=== PATIENT | male | born 1950 | race Caucasian/White ===

== ENCOUNTER 2017-03-14 11:54 | Emergency (ER) | payer MEDICARE, OTHER ==
[~2017-03-14] VITALS: Ht 188 cm; Wt 84.0 kg
[~2017-03-14 11:54] MED LIST: AMPYRA PO; CARD4TAB2 PO; DIAZ5 PO; OMEP20CA5 PO; POTA-243 PO; PROP60TA2 PO; TYLE3 PO
[2017-03-14 12:03] VITALS: BP 139/80; PULSE 59; RESP 16; TEMP 97.9; O2SAT 97
--- NOTE | 2017-03-14 12:42 | PD ---
HPI . Bruised right middle finger Chief Complaint: Skin Problem Time Seen by Provider: 12:31 Travel History International Travel<30 days: No Contact w/Intl Traveler<30days: No Traveled to known affect area: No History of Present Illness HPI Patient presents with bruising of the right middle finger. He does not recall an injury. He reports no pain. He noticed it yesterday. In addition, he reports a sacral decubitus ulcer. That has been present for about a month. His has been treating it with duoderm. There has been no foul drainage. He has not been running a fever. This patient has a history of multiple sclerosis. PFSH Past Medical History Arthritis: No Asthma: No Autoimmune Disease: Yes (MS) Blood Disorders: No Anxiety: No Depression: No Heart Rhythm Problems: No Cancer: No Cardiovascular Problems: No Chemotherapy: No Chest Pain: No Congestive Heart Failure: No COPD: No Cerebrovascular Accident: No Diabetes: No Endocrine: No GERD: Yes Glaucoma: No Genitourinary: Yes (H/O UTI) Headaches: Yes Hepatitis: No Hypertension: No Immune Disorder: Yes Kidney Stones: Yes Musculoskeletal: Yes Neurologic: Yes Psychiatric: No Reproductive: No Respiratory: No Migraines: No Myocardial Infarction: No Radiation Therapy: No Renal Failure: No Seizures: No Sickle Cell Disease: No Thyroid Disease: No Ulcer: No Past Surgical History Abdominal Surgery: No AICD: No Appendectomy: No Arteriovenous Shunt: No Cardiac Surgery: No Cholecystectomy: No Endocrine Surgery: No Eye Surgery: No Genitourinary Surgery: No Gynecologic Surgery: No Insulin Pump: No Joint Replacement: No Oral Surgery: No Pacemaker: No Thoracic Surgery: Yes (Hernia repair) Social History Alcohol Use: No Tobacco Use: No Substance Use: No Allergies-Medications (Allergen,Severity, Reaction): Coded Allergies: Nut Tree (Verified Allergy, Unknown, 03/14/17) Reported Meds & Prescriptions Reported Meds & Active Scripts Active Reported K-Dur (Potassium Chloride) Unknown Strength Tabcr Unknown Dose PO BID Tylenol #3 (Acetaminophen/Codeine Phosphate) Acetaminophen 300/30 Codeine Tab 1 Tab PO Q12 FOR PAIN Valium (Diazepam) 5 Mg Tab 5 Mg PO HS Prilosec 20 mg (Omeprazole) 20 Mg Capcr 20 Mg PO BID Cardura 4 mg (Doxazosin Mesylate) 4 Mg Tab 4 Mg PO BID [ampyra] 10 Mg PO BID Inderal (Propranolol HCl) 60 Mg Tab 120 Mg PO DAILY Review of Systems Except as stated in HPI: all other systems reviewed are Neg General / Constitutional: No: Fever, Chills Skin: Positive Change in Pigmentation, Positive Other (sacral decubitus) Physical Exam Narrative GENERAL: Awake and alert and in no acute distress. SKIN: Warm and dry. He has bruising of the right middle finger. The skin temperature of all fingers is. He has brisk capillary refill. Stage II sacral decubitus. No drainage. HEAD: Atraumatic. Normocephalic. EYES: Pupils equal and round. NECK: Trachea midline. CARDIOVASCULAR: Regular rate and rhythm. RESPIRATORY: No accessory muscle use. MUSCULOSKELETAL: No obvious deformities. No edema. The finger is nontender. NEUROLOGICAL: Awake and alert. No obvious cranial nerve deficits. Diffuse motor weakness. Normal speech. PSYCHIATRIC: Appropriate mood and affect; insight and judgment normal. Data Data Last Documented VS Vital Signs Date Time Temp Pulse Resp B/P Pulse Ox O2 Delivery O2 Flow Rate FiO2 03/14/17 12:03 97.9 59 16 139/80 97 MDM Medical Decision Making Medical Screen Exam Complete: Yes Emergency Medical Condition: Yes Differential Diagnosis Differential diagnosis of extremity trauma includes but is not limited to fracture, sprain or strain, dislocation, contusion Narrative Course Patient presents with bruising of the right little finger. The finger is nontender. He recalls no injury. He has normal circulation. He also has a stage II decubitus ulcer. It is clean appearing. Diagnosis Primary Impression: Hematoma Additional Impression: Sacral decubitus ulcer Qualified Code: L89.152 - Decubitus ulcer of sacral region, stage 2 Disposition: 01 DISCHARGE HOME Condition: Stable Chrissie Mckeon MD Mar 14, 2017 12:42
[2017-03-14] MEDS ORDERED: REDCAP2 PO (12:51)
[2017-03-14] MEDS ORDERED: OMEP20TA PO (12:51)
[2017-03-14] MEDS ORDERED: FINA5TAB2 PO (12:51)
[2017-03-14] MEDS ORDERED: AMPY10TA PO (12:51)
[2017-03-14] MEDS ORDERED: VITA400C5 PO (12:51)
[2017-03-14] MEDS ORDERED: MOME17I EACH NARE (12:51)
[2017-03-14] MEDS ORDERED: DIAZ5TAB PO (12:51)
[2017-03-14] MEDS ORDERED: ASPI-110 PO (12:51)
[2017-03-14] MEDS ORDERED: VITA10007 PO (12:51)
[2017-03-14] MEDS ORDERED: POTA1080 PO (12:51)
[2017-03-14] MEDS ORDERED: RAPA8CAP PO (12:51)
[2017-03-14] MEDS ORDERED: VITACAP7 PO (12:51)
[2017-03-14] MEDS ORDERED: FISH500C PO (12:51)
[2017-03-14] MEDS ORDERED: PROP1CAP32 PO (12:51)
[2017-03-14] MEDS ORDERED: TURM500C3 PO (12:51)
== END 2017-03-14 13:40 | disposition home or self-care (01) ==
LOC: PHED 11:54
DX: S60.031A Contusion of right middle finger without damage to nail, initial encounter (principal); L89.152 Pressure ulcer of sacral region, stage 2; G35 Multiple sclerosis; Z87.19 Personal history of other diseases of the digestive system; Z87.448 Personal history of other diseases of urinary system; Z87.39 Personal history of other diseases of the musculoskeletal system and connective tissue; Z86.69 Personal history of other diseases of the nervous system and sense organs; X58.XXXA Exposure to other specified factors, initial encounter
CPT/HCPCS: 99283

== ENCOUNTER → 2017-05-28 | Outpatient (CLI) | payer MEDICARE, OTHER ==
[~2017-05-28] MED LIST changes: +AMPY10TA PO; -AMPYRA PO; +ASPI-110 PO; -CARD4TAB2 PO; -DIAZ5 PO; +DIAZ5TAB PO; +FINA5TAB2 PO; +FISH500C PO; +MOME17I EACH NARE; -OMEP20CA5 PO; +OMEP20TA PO; -POTA-243 PO; +POTA1080 PO; +PROP1CAP32 PO; -PROP60TA2 PO; +RAPA8CAP PO; +REDCAP2 PO; +TURM500C3 PO; -TYLE3 PO; +VITA10007 PO; +VITA400C5 PO; +VITACAP7 PO
[2017-05-28 13:31] LABS: ANION GAP 5 MEQ/L (5-15); AST (GOT) 16 U/L (15-37); BLOOD UREA NITROGEN 15 MG/DL (7-18); CHLORIDE 105 MEQ/L (98-107); GLOMERULAR FILTRATION RATE 65 ML/MIN (>89); GLUCOSE,FASTING 77 MG/DL (74-99); POTASSIUM 3.8 MEQ/L (3.5-5.1); SODIUM (NA) 141 MEQ/L (136-145)
[2017-05-28 13:39] LABS: ALKALINE PHOSPHATASE 53 U/L (45-117); ALT (GPT) 21 U/L (12-78); LDL CHOLESTEROL 152 MG/DL (0-99); TOTAL BILIRUBIN ADULT 0.5 MG/DL (0.2-1.0)
== END ==
LOC: PLAB 10:47
PROVIDERS: ATTEND Urology
DX: N40.1 Benign prostatic hyperplasia with lower urinary tract symptoms (principal); E78.2 Mixed hyperlipidemia
CPT/HCPCS: 36415; 80053; 80061; 84153

== ENCOUNTER 2017-07-09 01:01 | Emergency (ER) | payer MEDICARE, OTHER ==
[~2017-07-09] VITALS: Ht 182.9 cm; Wt 83.0 kg
[2017-07-09 01:07] VITALS: BP 129/68; PULSE 77; RESP 16; TEMP 98.5; O2SAT 94
--- NOTE | 2017-07-09 01:37 | PD ---
HPI Chief Complaint: impacted stool Time Seen by Provider: 01:16 Travel History International Travel<30 days: No Contact w/Intl Traveler<30days: No Traveled to known affect area: No History of Present Illness HPI The patient is a 66-year-old male with a history of multiple sclerosis. He has not had a bowel movement since . The gave him been a fiber he states he has been drinking a lot of liquids but he still cannot pass any stool. He comes in tonight because of fecal impaction. His states this is the worst this has ever been. He does have hemorrhoids. He has very little strength in his body and may have to have a helper to move him into the bed. He cannot get into a bathtub. He has not been on any anticoagulants. He had recent colonoscopy which showed normal. He was started on cholestyramine 3 weeks ago for his elevated cholesterol. Apparently, he has not done well with statins. Apparently, the patient took 4 Tylenol number threes on Sunday for his MS pain. PFSH Past Medical History Arthritis: No Asthma: No Autoimmune Disease: Yes (MS) Blood Disorders: No Anxiety: No Depression: No Heart Rhythm Problems: No Cancer: No Cardiovascular Problems: No Chemotherapy: No Chest Pain: No Congestive Heart Failure: No COPD: No Cerebrovascular Accident: No Diabetes: No Diminished Hearing: No Endocrine: No Gastrointestinal Disorders: Yes GERD: Yes Glaucoma: No Genitourinary: Yes (H/O UTI) Headaches: Yes Hepatitis: No Hypertension: No Immune Disorder: Yes Kidney Stones: Yes Musculoskeletal: Yes Neurologic: Yes Psychiatric: No Reproductive: No Respiratory: No Migraines: No Myocardial Infarction: No Radiation Therapy: No Renal Failure: No Seizures: No Sickle Cell Disease: No Thyroid Disease: No Ulcer: No Past Surgical History Abdominal Surgery: No AICD: No Appendectomy: No Arteriovenous Shunt: No Cardiac Surgery: No Cholecystectomy: No Endocrine Surgery: No Eye Surgery: No Genitourinary Surgery: Yes (BLADDER STONES) Gynecologic Surgery: No Insulin Pump: No Joint Replacement: No Oral Surgery: No Pacemaker: No Thoracic Surgery: Yes (Hernia repair) Social History Alcohol Use: No Tobacco Use: No Substance Use: No Allergies-Medications (Allergen,Severity, Reaction): Coded Allergies: Nut Tree (Verified Allergy, Unknown, 07/09/17) Reported Meds & Prescriptions Reported Meds & Active Scripts Active Reported Aleve (Naproxen Sodium) 220 Mg Capsule Acetamin-Codein 300-30 mg/12.5 (Acetaminophen with Codeine) 12.5 Ml Solution Cholestyramine 4 Gm/Dose Powd 4 Gm PO DAILY 1 level scoopful of powder contains 4 grams of cholestyramine. Benefiber (Wheat Dextrin) 152 Gm Powder E-400 (Vitamin E) 400 Unit Cap PO DAILY Turmeric (Turmeric (Curcuma Longa)) 500 Mg Cap PO Red Yeast Rice (Red Yeast Rice Extract) 600 Mg Cap PO DAILY Rapaflo (Silodosin) 8 Mg Cap 8 Mg PO DAILY Propafenone ER (Propafenone HCl) 225 Mg Cap 120 Mg PO DAILY Potassium Citrate ER 1,080 Mg Tab PO DAILY Omeprazole 20 Mg Tab 20 Mg PO DAILY Nasonex Nasal [place] (Mometasone Furoate) 50 Mcg/Act Naspr 2 [place] EACH NARE DAILY Fish Oil ([place]-3 Fatty Acids) 500 Mg Cap 120 Mg PO DAILY Finasteride 5 Mg Tab 5 Mg PO DAILY Do not crush. Diazepam 5 Mg Tab 5 Mg PO HS PRN B Complex (B-Complex Vitamins) 1 Cap 1 Cap PO DAILY Ampyra 12 HR (Dalfampridine ER 12 HR) 10 Mg Tab 10 Mg PO Q12H Review of Systems Except as stated in HPI: all other systems reviewed are Neg Physical Exam Narrative GENERAL: Well-nourished, well-developed patient in minimal apparent distress with his constipation symptoms. His vital signs are normal. SKIN: Focused skin assessment warm/dry. HEAD: Normocephalic. EYES: No scleral icterus. No injection or drainage. NECK: Supple, trachea midline. No JVD or lymphadenopathy. CARDIOVASCULAR: Regular rate and rhythm without murmurs, gallops, or rubs. RESPIRATORY: Breath sounds equal bilaterally. No accessory muscle use. GASTROINTESTINAL: Abdomen soft, non-tender, nondistended. No guarding or rebound is present. MUSCULOSKELETAL: No cyanosis, or edema. BACK: Nontender without obvious deformity. No CVA tenderness. RECTAL EXAM: The patient has large fiery red hemorrhoids that bleed with simple touching. There are large, extremely hard fecal impactions present in the rectum. These were digitally broken up/removed to the length of my finger. Higher up can be felt similarly large/hard fecal impactions. Sphincter tone was lax. Data Data Last Documented VS Vital Signs Date Time Temp Pulse Resp B/P Pulse Ox O2 Delivery O2 Flow Rate FiO2 07/09/17 01:07 98.5 77 16 129/68 94 Orders Fleets Enema (Adult) (Fleets Enema (Adul (07/09/17 01:45) Mineral Oil Enema (Fleet Mineral Oil Mary Ellen (07/09/17 02:30) MDM Medical Decision Making Medical Screen Exam Complete: Yes Emergency Medical Condition: Yes Medical Record Reviewed: Yes Differential Diagnosis Fecal impaction secondary to: Multiple sclerosis, dehydration, cholestyramine side effect, opiate-induced constipation Narrative Course The patient likely has fecal impaction secondary to cholestyramine side effect. The patient also may have a slight amount of opiate-induced constipation. I went in many times removing hard fecal impactions until the stool was soft enough to where the patient should be able to pass the stool himself. Diagnosis Primary Impression: Fecal impaction in rectum Additional Impression: Drug induced constipation Additional Instructions: I agree that she should discontinue the cholestyramine. For a short while consider also discontinuing the Tylenol 3. Hopefully this will allow him to have some good bowel movements at home. Have him increase his liquid intake. Follow-up with his primary care physicians. Disposition: 01 DISCHARGE HOME Condition: Stable Yousif Steen MD Jul 09, 2017 01:37
[2017-07-09] MEDS ORDERED: ACET120S3 (01:43)
[2017-07-09] MEDS ORDERED: NAPR220C22 (01:43)
[2017-07-09] MEDS ORDERED: WHEA1POW13 (01:43)
[2017-07-09] MEDS ORDERED: CHOL4POW3 PO (01:43)
[2017-07-09] MEDS ORDERED: SOD PHOSPHATE/SOD BIPHOSPHATE (ADULT) ENEMA 133ML RECTAL ONE (01:45)
[2017-07-09] MEDS ORDERED: MINERAL OIL ENEMA 118 ML BTL RECTAL ONE (02:30)
[2017-07-09 03:30] VITALS: BP 124/68
== END 2017-07-09 03:51 | disposition home or self-care (01) ==
LOC: PHED 01:01
DX: K56.41 Fecal impaction (principal); G35 Multiple sclerosis
CPT/HCPCS: 99284